=== PATIENT | female | born 1990 | race Caucasian/White ===

== ENCOUNTER 2022-08-30 08:12 | Emergency (ER) | payer BC, SELFPAY ==
[2022-08-30] VITALS (22 sets, daily range): BP systolic 98–120; BP diastolic 53–81; PULSE 54–78; RESP 16; TEMP 36.7; O2SAT 92–100; BMI 26.6
--- NOTE | 2022-08-30 09:38 | ED_ITS ---
HPI - Anxiety General Chief Complaint: Anxiety Stated Complaint: rapid heart rate Time Seen by Provider: 08/30/22 09:25 History of Present Illness HPI narrative: This 31-year-old female comes in with recurrent episodes of anxiety and panic. She states that she feels short of breath during these times and has some increased heart rate. Sometimes she gets lightheaded. This is been going on for many months or more than a year. She states she does have a prescription for Ativan but has only taken it twice and both times it was prior to flying as she has a fear of flying. She states that it really helped her when she did take it. She is not taking any other medicines except spironolactone for acne. Related Data Home Medications Medication Instructions Recorded Confirmed lorazepam 0.5 mg tablet 0.5 mg PO Q8H PRN 08/30/22 08/30/22 spironolactone 100 mg tablet 100 mg PO DAILY 08/30/22 08/30/22 Previous Rx's Medication Instructions Recorded escitalopram oxalate 10 mg tablet 10 mg PO DAILY #30 tabs 08/30/22 (Lexapro) Allergies Allergy/AdvReac Type Severity Reaction Status Date / Time Penicillins Allergy Unknown Verified 08/30/22 08:31 Review of Systems Status of ROS: Reports: 10 or more systems reviewed and unremarkable except as noted in History and below Narrative: Constitutional: No fevers, no weight gain or loss. Eyes: No discharge. No vision changes. HENT: No congestion, no sore throat, no ear pain. Cardiovascular: No chest pain, no palpitations. Respiratory: No shortness of breath, no wheezes, no cough. Gastrointestinal: No abdominal pain, no vomiting, no diarrhea. Genitourinary: No dysuria, no hematuria. Musculoskeletal: Normal range of motion. Skin: No rashes, no pruritis. Neurological: No dizziness, weakness, sensory change, speech change. Endo/Heme/Allergies: No bruising or bleeding. No polydipsia. Pysch: no suicidality, no insomnia. She reports anxiety and panic symptoms. All other systems reviewed and are negative. [facility] Social History Smoking Status: Former smoker Do you use any of these nicotine containing products: Vaping Products Second hand tobacco smoke exposure: No How often do you have a drink containing alcohol: monthly or less How many standard drinks containing alcohol do you have on a typical day: 3 or 4 AUDIT-C Alcohol total score: 2 Non-prescribed substance use: denies use Exam Narrative: Exam Narrative: Constitutional: Well-developed, well-nourished, no acute distress. HEENT: Normocephalic, atraumatic. Neck: Normal range of motion. Nontender. Supple. Heart: Regular. No murmurs. Normal rate. Intact distal pulses. Lungs: Clear to auscultation. No chest discomfort. No wheezes, rhonchi, or rales. Abdomen: Normal bowel sounds. Nontender. No rebound tenderness. Genitalia: Deferred. Back: No midline tenderness. Normal range of motion. Extremities: Normal range of motion. No injury. Skin: Intact. No rash. Warm. No erythema or pallor. Neurologic: No altered sensation. No weakness. Alert and oriented. Psychiatric: No suicidality. She is tearful at times as she describes her symptoms of anxiety and occasional panic. Nursing notes and vitals signs are reviewed. Const: Vital Signs, click to edit/add: Vital Signs - 24 hr 08/30/22 08:23 08/30/22 08:35 08/30/22 08:37 Temperature 98.1 F Pulse Rate 61 63 Pulse Rate [Pulse Oximeter] 78 Respiratory Rate 16 Blood Pressure 114/74 Blood Pressure [Ri ght Upper Arm] 120/81 Pulse Oximetry 100 98 [facility] 08/30/22 08:45 08/30/22 09:00 08/30/22 09:01 Temperature Pulse Rate 71 63 54 L Pulse Rate [Pulse Oximeter] Respiratory Rate Blood Pressure 107/69 Blood Pressure [Ri ght Upper Arm] Pulse Oximetry 98 98 98 [facility] 08/30/22 09:15 08/30/22 09:30 08/30/22 09:32 Temperature Pulse Rate 58 L 58 L 56 L Pulse Rate [Pulse Oximeter] Respiratory Rate Blood Pressure 106/75 Blood Pressure [Ri ght Upper Arm] Pulse Oximetry 99 99 99 Oxygen Delivery Nd thod 08/30/22 09:45 08/30/22 10:01 08/30/22 10:15 Temperature Pulse Rate 56 L 73 59 L Pulse Rate [Pulse Oximeter] Respiratory Rate Blood Pressure Blood Pressure [Ri ght Upper Arm] Pulse Oximetry 98 92 [facility] 08/30/22 10:30 08/30/22 10:32 08/30/22 10:45 Temperature Pulse Rate 54 L 60 58 L Pulse Rate [Pulse Oximeter] Respiratory Rate Blood Pressure 105/70 Blood Pressure [Ri ght Upper Arm] Pulse Oximetry 100 100 99 Oxygen Delivery Me thod 08/30/22 11:00 08/30/22 11:01 08/30/22 10:08 Temperature Pulse Rate 59 L 57 L Pulse Rate [Pulse Oximeter] Respiratory Rate Blood Pressure 98/53 L Blood Pressure [Ri ght Upper Arm] Pulse Oximetry 99 100 100 Oxygen Delivery Me thod Course Vital Signs Vital signs: Initial Vital Signs Temperature 98.1 F 08/30/22 08:23 Temperature Source Temporal Artery Scan 08/30/22 08:23 Pulse Rate 78 08/30/22 08:23 Pulse Rhythm 08/30/22 08:23 Pulse Strength 3+ Normal 08/30/22 08:23 Respiratory Rate 16 08/30/22 08:23 Blood Pressure 120/81 08/30/22 08:23 Blood Pressure Mean 94 08/30/22 08:23 Blood Pressure Position Sitting 08/30/22 08:23 Pulse Oximetry 100 08/30/22 08:23 Oxygen Delivery Method 08/30/22 08:23 Vital Signs Temperature 98.1 F 08/30/22 08:23 Pulse Rate 78 08/30/22 08:23 Respiratory Rate 16 08/30/22 08:23 Blood Pressure 120/81 08/30/22 08:23 Pulse Oximetry 100 08/30/22 08:23 Oxygen Delivery Method 08/30/22 08:23 Temperature 98.1 F 08/30/22 08:23 Pulse Rate 57 L 08/30/22 11:01 Respiratory Rate 16 08/30/22 08:23 Blood Pressure 98/53 L 08/30/22 11:01 Pulse Oximetry 100 08/30/22 11:01 Oxygen Delivery Method 08/30/22 08:23 MDM - Anxiety MDM Narrative Medical decision making narrative: This patient comes in reporting anxiety symptoms with episodes of panic. She does have some underlying depression. She is not taking any medications for this despite having these symptoms for quite some time. She does have Ativan prescription but is only taken it twice over the past year. Lab results today are returning in normal range. Her thyroid stimulating hormone result is pending yet. She is not having any particular panic symptoms currently. She would benefit from an antidepressant antianxiety medication. I did recommend Lexapro which she is open to trying. A prescription for 10 mg tablets is provided and the patient is encouraged to follow-up with her primary physician in 2-3 weeks to review this plan. She does have Ativan that can be used as needed and directed. Lab Data Labs: Lab Results 08/30/22 08/30/22 08/30/22 Range/Units 10:00 10:00 10:00 WBC 4.60 (4.50-11.00) K/uL RBC 4.42 (4.00-5.20) m/uL Hgb 13.4 (12.0-16.0) gm/dL Hct 39.4 (33.0-51.0) % MCV 89 (80-100) fL MCH 30 (26-34) pg MCHC 34 (32-36) gm/dL RDW Coeff of Matthias 12.4 (11.5-15.5) % Plt Count 220 (140-440) K/uL Neut % (Auto) 62.6 (42.0-72.0) % Lymph % (Auto) 26.1 (20-44) % [place] % (Auto) 8.5 (0.0-11.0) % Eos % (Auto) 2.4 (0.0-7.0) % Baso % (Auto) 0.4 (0.0-3.0) % Neut # (Auto) 2.88 (1.7-7.0) K/uL Lymph # (Auto) 1.20 (0.90-2.90) K/uL [place] # (Auto) 0.40 (0.00-0.90) K/UL Eos # (Auto) 0.11 (0.00-0.50) K/uL Baso # (Auto) 0.02 (0.00-0.30) K/uL Sodium 137 (135-149) mmol/L Potassium 5.1 (3.6-5.1) mmol/L Chloride 106 (96-114) mmol/L Carbon Dioxide 28 (20-32) mmol/L BUN 9 (5-24) mg/dL Creatinine 0.8 (0.5-1.5) mg/dL Estimated Creat Clear 82.74 Estimated GFR 100 ml/min Glucose 104 (60-115) mg/dL Calcium 9.0 (8.4-10.6) mg/dL TSH 1.430 (0.270-4.20) uIU/mL ECG Data Attestation: I personally reviewed and interpreted this ECG as follows: Interpretation: Normal sinus rhythm. Rate is 56 beats per minute. There are no ST or T-wave abnormalities. Discharge Plan Discharge Clinical Impression: Panic disorder, Acute anxiety Patient Disposition: Home, Self-Care Condition: Stable Additional Instructions: Take medication as prescribed. Use Ativan also as needed and directed. Follow up with primary physician in 2-3 weeks. Return if worsening. Prescriptions: New escitalopram oxalate [Lexapro] 10 mg tablet 10 mg PO DAILY Qty: 30 2RF No Action spironolactone 100 mg tablet 100 mg PO DAILY Label Comments: Take one tablet by mouth once daily. Take with a full glass of water. for acne lorazepam 0.5 mg tablet 0.5 mg PO Q8H PRN Label Comments: TAKE ONE TABLET BY MOUTH DAILY NEEDED FOR ANXIETY Stand Alone Forms: MyHealth Info Instructions
[2022-08-30 10:10] LABS: Basophils Absolute Auto 0.02 K/uL (0.00-0.30); Basophils Percent Auto 0.4 % (0.0-3.0); Eosinophils Absolute Auto 0.11 K/uL (0.00-0.50); Eosinophils Percent Auto 2.4 % (0.0-7.0); Hematocrit 39.4 % (33.0-51.0); Hemoglobin* 13.4 gm/dL (12.0-16.0); Lymphocytes Percent Auto 26.1 % (20-44); Mean Corpuscular HGB Conc 34 gm/dL (32-36); Mean Corpuscular Hemoglobin 30 pg (26-34); Mean Corpuscular Volume 89 fL (80-100); Monocytes Percent Auto 8.5 % (0.0-11.0); Neutrophils Absolute Auto 2.88 K/uL (1.7-7.0); Neutrophils Percent Auto 62.6 % (42.0-72.0); Platelet Count* 220 K/uL (140-440); RDW Coefficient of Variation % 12.4 % (11.5-15.5); Red Blood Count 4.42 m/uL (4.00-5.20)
[2022-08-30 10:15] LABS: Slide Review Reflex No
[2022-08-30 10:24] LABS: Chloride* 106 mmol/L (96-114); Sodium* 137 mmol/L (135-149)
[2022-08-30 10:25] LABS: Potassium* 5.1 mmol/L (3.6-5.1)
[2022-08-30 10:27] LABS: Carbon Dioxide* 28 mmol/L (20-32); Creatinine* 0.8 mg/dL (0.5-1.5); Est. Creatinine Clearance* 82.74; Estimated Glomerular Filt Rate 100 ml/min
[2022-08-30 10:28] LABS: Blood Urea Nitrogen* 9 mg/dL (5-24); Glucose* 104 mg/dL (60-115)
== END 2022-08-30 11:50 | disposition home or self-care (01) ==
LOC: ED 09:57
PROVIDERS: Emergency Provider Emergency Medicine Emergency Medical Services
DX: F41.0 Panic disorder [episodic paroxysmal anxiety] (principal); F41.9 Anxiety disorder, unspecified
CPT/HCPCS: 36415; 80048; 84443; 85025; 93005; 94761; 99284

== ENCOUNTER 2023-07-05 12:34 | Outpatient (CLI) | payer BC, SELFPAY | END 2023-07-05 12:35 | disposition home or self-care (01) | PROVIDERS: Visit Provider Registered Nurse | DX: Z01.419 Encounter for gynecological examination (general) (routine) without abnormal findings (principal); L65.9 Nonscarring hair loss, unspecified; Z13.6 Encounter for screening for cardiovascular disorders; Z13.1 Encounter for screening for diabetes mellitus; Z13.29 Encounter for screening for other suspected endocrine disorder | CPT/HCPCS: 80061; 82947; 84443 ==

== ENCOUNTER 2023-07-06 14:54 | Outpatient (CLI) | payer BC, SELFPAY ==
--- NOTE | 2023-07-06 15:00 | CRLHL7_ITS ---
For Patients: As a result of the Century Cures Act, medical imaging exams and procedure reports are released immediately into your electronic medical record. You may view this report before your referring provider. If you have questions, please contact your health care provider. CLINICAL HISTORY: DISPLACED IUD TECHNIQUE: 2D gill scale and color Doppler images were acquired of the pelvis using a transvaginal approach. FINDINGS: On transvaginal imaging, the myometrium has a mildly heterogeneous echotexture. The uterus measures 9.5 x 5.0 x 5.8 cm. IUD is present in good position within the endometrial canal. The left ovary measures 3.8 x 1.5 x 3.0 cm in size and the right ovary measures 4.3 x 2.6 x 3.5 cm. The ovaries demonstrate normal arterial and venous blood flow on color Doppler analysis. There are no suspicious fluid collections within the cul-de-sac. IMPRESSION: Normal position of the IUD. Dictated by Rolando Antoine MD @ 07/07/2023 11:52:49 AM (Electronically Signed)
== END 2023-07-06 14:55 | disposition home or self-care (01) ==
LOC: US 14:55
PROVIDERS: Visit Provider Registered Nurse
DX: T83.32XA Displacement of intrauterine contraceptive device, initial encounter (principal)
CPT/HCPCS: 76830

== ENCOUNTER 2023-07-27 09:37 | Outpatient (CLI) | payer BC, SELFPAY ==
--- NOTE | 2023-07-27 09:45 | CRLHL7_ITS ---
For Patients: As a result of the Century Cures Act, medical imaging exams and procedure reports are released immediately into your electronic medical record. You may view this report before your referring provider. If you have questions, please contact your health care provider. DIAGNOSTIC LEFT BREAST MAMMOGRAM WITH COMPUTER-AIDED DETECTION AND TOMOSYNTHESIS LEFT BREAST ULTRASOUND CLINICAL HISTORY: LEFT breast mass/asymmetry. COMPARISON: None. TECHNIQUE: Digital LEFT mammogram in 2 projections. Computer-aided detection and tomosynthesis were used. Real-time ultrasound imaging of LEFT breast with imaging documentation. BREAST COMPOSITION: There are scattered areas of fibroglandular density FINDINGS: 3D CC/MLO LEFT breast mammogram images submitted. No suspicious masses or architectural distortion. No suspicious calcifications or adenopathy. Targeted LEFT breast ultrasound performed in area of concern at 1 o`clock 3 cm from the nipple. Normal fibroglandular tissue is present. No fibrocystic change or mass. IMPRESSION: Normal LEFT breast mammograms and targeted LEFT breast ultrasound. No suspicious findings. RECOMMENDATIONS: Clinical follow-up. Age appropriate screening mammography. BI-RADS Category 1: Negative Results and recommendations discussed with the patient. A lay language report of this examination will be provided to the patient. Dictated by Rolando Antoine MD @ 07/27/2023 12:13:04 PM/maikol ARASELI/Dictated by: Rolando Antoine MD @ 07/27/2023 12:13:00 PM (Electronically Signed)
--- NOTE | 2023-07-27 10:15 | CRLHL7_ITS ---
For Patients: As a result of the Century Cures Act, medical imaging exams and procedure reports are released immediately into your electronic medical record. You may view this report before your referring provider. If you have questions, please contact your health care provider. PLEASE SEE LEFT BREAST DIAGNOSTIC MAMMOGRAM OF SAME DAY. CRL:maikol ARASELI/Dictated by: Rolando Antoine MD @ 07/27/2023 12:13:00 PM (Electronically Signed)
== END 2023-07-27 09:38 | disposition home or self-care (01) ==
LOC: MAMMO 09:37
PROVIDERS: Visit Provider Registered Nurse
DX: N63.20 Unspecified lump in the left breast, unspecified quadrant (principal)
CPT/HCPCS: 76642; 77065; G0279

== ENCOUNTER 2024-07-11 08:23 | Outpatient (CLI) | payer BC, SELFPAY | END 2024-07-11 08:24 | disposition home or self-care (01) | LOC: NFLDREF 07-19 07:00 | PROVIDERS: Visit Provider Registered Nurse | DX: Z13.6 Encounter for screening for cardiovascular disorders (principal) | CPT/HCPCS: 80061 ==